=== PATIENT | male | born 1995 | race Two or more races ===

== ENCOUNTER 2018-12-29 01:30 | Emergency (ER) | payer OTHER ==
[~2018-12-29] VITALS: Ht 177.8 cm; Wt 63.5 kg
[2018-12-29 01:34] VITALS: BP 150/88
[2018-12-29 01:39] VITALS: BP 150/88
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
[2018-12-29] MEDS ORDERED: TRIPLE ANTIBIOTIC OINTMENT TP ONE ×2 (01:48→02:00)
[2018-12-29] MEDS ORDERED: TENIVAC SYRINGE IM ONE (02:00)
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
[2018-12-29] MEDS ORDERED: ADACEL VIAL IM ONE (02:19)
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
[2018-12-29 02:23] VITALS: BP 148/64
== END 2018-12-29 02:30 | disposition home or self-care (01) ==
LOC: ER 01:30 → EDBD 01:30 → ER 02:30
DX: S76.911A Strain of unspecified muscles, fascia and tendons at thigh level, right thigh, initial encounter (principal); V49.88XA Car occupant (driver) (passenger) injured in other specified transport accidents, initial encounter; Y93.89 Activity, other specified; Y92.488 Other paved roadways as the place of occurrence of the external cause; Y99.8 Other external cause status
CPT/HCPCS: 73552; 90471; 90715; 99284; 73550-RT